=== PATIENT | female | born 1970 | race Caucasian/White ===

== ENCOUNTER → 2016-04-05 | Outpatient (CLI) | payer OTHER | END | disposition home or self-care (01) | LOC: GMAM 19:29 | PROVIDERS: ATTEND Family Medicine | DX: N64.59 Other signs and symptoms in breast (principal); N63 Unspecified lump in breast ==

== ENCOUNTER → 2016-04-06 | Outpatient (CLI) | payer OTHER ==
--- NOTE | 2016-04-07 11:07 | US ---
EXAM DESCRIPTION: Breast,Left CLINICAL HISTORY: 45 years Female, palpable abnormality left breast COMPARISON: Comparison is made with October 09, 2012 mammography TECHNIQUE: Directed ultrasound area of interest left breast 12:00 retroareolar FINDINGS: Ultrasound images of the left breast demonstrate two adjacent cysts retroareolar portion left breast at about 12:00. The larger cyst measures 2.1 cm and the smaller cyst about 1.7 cm. It is possible that this is a single cyst with a intervening septation although I believe these are two separate cysts. It would be useful to perform ultrasound-guided cyst aspiration. This patient should undergo mammography unless that has already been performed elsewhere. IMPRESSION: 1. Palpable abnormality subareolar portion left breast most likely two adjacent cysts. I recommend surgical consultation for ultrasound-guided cyst aspiration to confirm. I also believe this patient should undergo mammography. BIRAD CATEGORY: 0 INCOMPLETE Electronically signed by: Richar Olson MD 04/07/2016 11:06 AM FLOOR REPRESENTATIVE
== END | disposition home or self-care (01) ==
LOC: US 09:33
PROVIDERS: ATTEND Family Medicine
DX: N63 Unspecified lump in breast (principal); N64.59 Other signs and symptoms in breast

== ENCOUNTER → 2016-04-26 | Outpatient (CLI) | payer OTHER ==
--- NOTE | 2016-04-27 10:18 | OP ---
DATE OF PROCEDURE: 04/26/16 PREOPERATIVE DIAGNOSIS: 1. Abnormal left mammogram with cystic mass. POSTOPERATIVE DIAGNOSIS: 1. And biopsy left mammogram with cystic mass. PROCEDURE: 1. Sonographically guided aspiration, left breast cystic mass. SURGEON: Maurizio Zhu MD. PRESS ASSISTANT: None. ANESTHESIA: Local infiltration of 1% lidocaine. INDICATION: The patient is a 45-year-old female who mammography was found to have a somewhat cystic mass at the 12 o'clock position in the left breast. After the risks, benefits and alternatives to the procedure were discussed, she was brought to the ultrasound suite today for sonographically guided aspiration. FINDINGS: Only approximately 0.5 mL of bloody fluid was obtained using an 18 gauge needle. Pathology is pending. PROCEDURE: The patient was brought to the ultrasound suite and placed in the supine position. The ultrasound device was used to identify the lesion and then the breast lateral to this was prepped with Betadine and draped with sterile towels. At this point, local infiltration of anesthesia was obtained with 1% lidocaine and a 25 gauge needle was introduced into the mass under ultrasound guidance without difficulty. At this point, an 18 gauge needle was introduced with some difficulty into the mass. As noted, only a small amount of fluid was obtained. It was placed in fluid by cytologic evaluation. Hemostasis was obtained with pressure. Sterile dressing was applied. The patient was wrapped with an Reuben wrap. She tolerated the procedure well. Estimated blood loss was less than 5 mL. The patient was discharged to home. #[id number] [facility]
--- NOTE | 2016-04-27 14:54 | US ---
History: Suspected cyst left breast 12:00. DATE OF SERVICE: 04/26/2016 FINDINGS: 14 static images are submitted from an ultrasound-guided attempted cyst aspiration. The images demonstrate placement of the needle into a somewhat macrolobulated somewhat irregular mass left breast 12:00. The mass does not appear to decrease in size. The findings would suggest that it is solid. No mammogram has been performed on this patient. IMPRESSION: Suspected solid nodule left breast 12:00 with sonographic morphology concerning for potential carcinoma. Mammographic imaging in this patient is recommended prior to further intervention. Electronically signed by: Neda Morales MD 04/27/2016 2:54 PM CDT
== END | disposition home or self-care (01) ==
LOC: US 08:25
PROVIDERS: ATTEND Surgery
PROC: 0HBU3ZX Excision of Left Breast, Percutaneous Approach, Diagnostic (ICD-10-PCS; principal; 2016-04-26)
PROC: BH41ZZZ Ultrasonography of Left Breast (ICD-10-PCS; 2016-04-26)
DX: N63 Unspecified lump in breast (principal)

== ENCOUNTER → 2016-05-10 | Outpatient (CLI) | payer OTHER ==
--- NOTE | 2016-05-10 13:54 | US ---
History: Left breast mass. Ultrasound-guided needle biopsy: A total of 13 images are submitted and demonstrate placement of the needle traversing a left breast retroareolar nodule. No complication is shown. IMPRESSION: Technically successful left breast ultrasound-guided biopsy performed by the patient's surgeon. Electronically signed by: Neda Morales MD 05/10/2016 1:52 PM CDT
--- NOTE | 2016-05-10 21:57 | OP ---
DATE OF PROCEDURE: 05/10/16 PREOPERATIVE DIAGNOSIS: 1. Left breast cystic mass without resolution after needle aspiration. POSTOPERATIVE DIAGNOSIS: 1. Left breast cystic mass without resolution after needle aspiration. SURGICAL PROCEDURE: 1. Sonographic guided needle core biopsy left breast mass. SURGEON: Maurizio Zhu M.D. ANESTHESIA: Local infiltration of 1% Lidocaine INDICATION FOR SURGERY: The patient is a 45 year-old female who was found to have a cystic mass. She underwent aspiration and no pathological findings were identified but the mass did not resolve. She was brought to the Surgical Suite today for a needle core biopsy, especially of some of the thickened irregular cyst wall. She was brought to the Ultrasound Suite today for this. FINDINGS AT TIME OF PROCEDURE: Several excellent cores were taken with the needle certainly within the mass. Pathology is pending. DESCRIPTION OF PROCEDURE: The patient was placed in the supine position. The breast was examined with the ultrasound device. The lesion is identified. The breast lateral to the ultrasound wand was prepped with Betadine and draped with towels. Local infiltration of anesthesia was obtained with 1% Lidocaine. A 25 gauge needle was introduced in the mass and more infiltration is done. At this point a stab wound is made with a #15 blade and then the needle core biopsy device was introduced under ultrasound guidance into the mass, and the cores were taken. The patient tolerated the procedure well. There was no significant blood flow loss. The wound was closed with a single #3-0 nylon simple suture. Sterile pressure dressing was applied. The patient tolerated the procedure well. The specimen was sent for pathological evaluation. #[id number] [facility]
== END | disposition home or self-care (01) ==
LOC: US 07:47
PROVIDERS: ATTEND Surgery
PROC: 0HBU3ZX Excision of Left Breast, Percutaneous Approach, Diagnostic (ICD-10-PCS; principal; 2016-05-10)
PROC: BH41ZZZ Ultrasonography of Left Breast (ICD-10-PCS; 2016-05-10)
DX: N63 Unspecified lump in breast (principal)

== ENCOUNTER → 2020-03-03 | Outpatient (CLI) | payer OTHER ==
--- NOTE | 2020-03-06 13:40 | MAM ---
EXAM DESCRIPTION: 3D Screening BILATERAL : Digital Mammography. CLINICAL HISTORY: 49 years Female screening . No complaints. Mother with ovarian cancer unknown age. No family history of breast cancer. Menarche age 14. Childbirth Age 29. Prior benign biopsy left breast. Premenopausal.. Lifetime risk of developing breast cancer (Tyrer-Cuzick model)(%): 10.8. COMPARISON: Bilateral screening digital breast on the symphysis October 2012. Left breast ultrasound April 2016. No prior reports available. TECHNIQUE: Bilateral CC and MLO projection full-field images, digital tomosynthesis mammographic technique. Bilateral digital 2-D full-field MLO images. CAD available for 2-D images. FINDINGS: The breast parenchymal density pattern is: Heterogeneously dense breast tissue, which may obscure small masses. Mass with partially circumscribed margins approximately 6.3 cm from the nipple 12:00. Posterior masses possibly cyst 6:00 right breast approximately 6 cm from the nipple. Axillary nodes. No skin thickening or nipple retraction No new focal, stellate mass or density, focal asymmetry , and no suspicious microcalcifications left breast. IMPRESSION: BI-RADS CATEGORY: 0 - INCOMPLETE- Need additional imaging evaluation. RECOMMENDATIONS: FOLLOW-UP: Recall for additional imaging: Full field bilateral LM 2-D tomosynthesis imaging. Directed ultrasound right breast in the region of interest.. Written communication concerning the IMPRESSION and Follow-up, will be mailed to the patient and referring health care provider. Electronically signed by: Reese Cadena MD 03/06/2020 1:39 PM [employer]
== END ==
LOC: MAMMO 15:06
PROVIDERS: ATTEND Family Medicine
DX: Z12.31 Encounter for screening mammogram for malignant neoplasm of breast (principal)